=== PATIENT | female | born 1985 ===

== ENCOUNTER 2017-05-20 00:32 | Emergency (ER) | payer BC ==
[2017-05-20 00:32] VITALS: BMI 30.3
[2017-05-20 00:50] VITALS: TEMP 99
--- NOTE | 2017-05-20 01:03 | ED PDOC ---
HPI: General Adult Time Seen by Provider: 05/20/17 00:59 Chief Complaint (Nursing): Anxiety Chief Complaint (Provider): anxiety History Per: Patient, Family ( at bedside is translating in Nigerian for patient) Additional Complaint(s): 31-year-old female with no past medical history presents to emergency department for evaluation status post having panic attack at home. Patient was getting ready for bed when she became acutely anxious. She started to have shortness of breath and felt that her heart was racing. stated that patient was having trouble breathing so he called ambulance and she was brought here. Upon arrival patient is tearful and admits to feeling very stressed and anxious over the past few weeks. She denies alcohol or drug use. Patient denies suicidal or homicidal ideation. Past Medical History Reviewed: Historical Data, Nursing Documentation, Vital Signs Vital Signs: Last Vital Signs Temp 99.0 F 05/20/17 00:41 Pulse 84 05/20/17 01:59 Resp 16 05/20/17 01:59 BP 140/80 05/20/17 01:59 Pulse Ox 98 05/20/17 02:20 - Medical History PMH: No Chronic Diseases - Surgical History Surgical History: (x 2) - Family History Family History: States: No Known Family Hx - Living Arrangements Living Arrangements: With Family - Social History Current smoker - smoking cessation education provided: No Alcohol: None Drugs: Denies - Home Medications Home Medications: Ambulatory Orders Medication Instructions Recorded Fluticasone Nasal [Flonase] 1 spray NS DAILY #1 bottle 05/20/17 - Allergies Allergies/Adverse Reactions: Allergies Allergy/AdvReac Type Severity Reaction Status Date / Time No Known Allergies Allergy Verified 07/29/14 05:52 Review of Systems ROS Statement: Except As Marked, All Systems Reviewed And Found Negative Constitutional: Negative for: Fever Cardiovascular: Positive for: Chest Pain, Palpitations Respiratory: Positive for: Shortness of Breath Gastrointestinal: Negative for: Nausea, Vomiting Psych: Positive for: Anxiety. Negative for: Suicidal ideation Physical Exam - Reviewed Nursing Documentation Reviewed: Yes Vital Signs Reviewed: Yes - Physical Exam Appears: Positive for: Well, Non-toxic, No Acute Distress Skin: Negative for: Rash Eye Exam: Positive for: Normal appearance, EOMI, PERRL Cardiovascular/Chest: Positive for: Regular Rate, Rhythm Respiratory: Positive for: Normal Breath Sounds Gastrointestinal/Abdominal: Positive for: Soft. Negative for: Tenderness, Distended, Guarding Back: Negative for: L CVA Tenderness, R CVA Tenderness Extremity: Positive for: Normal ROM. Negative for: Pedal Edema Neurologic/Psych: Positive for: Alert, Oriented, Mood/Affect (anxious and tearful) - ECG Interpretation Of ECG: Sinus tach 118 bpm, no acute finding, reviewed by PA and ED attending. O2 Sat by Pulse Oximetry: 98 Pulse Ox Interpretation: Normal Medical Decision Making Medical Decision Makin31 year old female with anxiety and panic attack Plan: Crisis consult EKG 0.25 mg PO xanax As per crisis counselor and psychiatrist construction producer, Dr. Delacruz, patient does not meet criteria for admission and is stable for discharge. She was given referral for outpatient follow up. Patient states she has had nasal congestion for 1 week and she is requesting med for this. Rx flonase given. Disposition - Clinical Impression Clinical Impression: Anxiety attack, Anxiety, Nasal congestion - Patient ED Disposition Is Patient to be Admitted: No Counseled Patient/Family Regarding: Studies Performed, Diagnosis, Need For Followup - Disposition Referrals: [facility] [Outside] Disposition: Routine/Home Disposition Time: 02:35 Condition: STABLE Additional Instructions: Take meds as directed. Follow up as directed. Prescriptions: Fluticasone Nasal [Flonase] 1 spray NS DAILY #1 bottle Instructions: Panic Attack (ED), Anxiety (ED), Cold Symptoms (ED) Forms: [employer] (Nigerian) Print Language: SINHALA
[2017-05-20 02:00] VITALS: BP 140/80; PULSE 84; RESP 16
[2017-05-20 02:17] VITALS: O2SAT 98
--- NOTE | 2017-05-20 21:06 | CARD ---
APPROVED REPORT EKG Measurement Heart [id number] <Conclusion> Sinus tachycardia Otherwise normal ECG
== END 2017-05-20 03:07 | disposition home or self-care (01) ==
LOC: H.ER 00:32
DX: R09.81 Nasal congestion (principal); F41.9 Anxiety disorder, unspecified

== ENCOUNTER 2018-07-20 22:15 | Emergency (ER) | payer BC ==
[2018-07-20 22:15] VITALS: BMI 30.3
[2018-07-20 22:57] VITALS: BP 132/76; PULSE 74; RESP 16; TEMP 98.3; O2SAT 99
== END 2018-07-21 01:35 | disposition left against medical advice (07) ==
LOC: H.ER 22:15
DX: Z02.89 Encounter for other administrative examinations (principal)